=== PATIENT | male | born 1950 | race Hispanic/Latino ===

== ENCOUNTER 2019-02-03 01:15 | Emergency (ER) | payer OTHER ==
[2019-02-03] MEDS ORDERED: PANTOPRAZOLE 40 MG INJ ONE (02:08)
[2019-02-03 02:09] LABS: Absolute Lymphocytes (CBC) 1.1 K/uL (0.7-4.9); Basophils % 0.6 % (0-1.3); Hematocrit 38.1 % (39.6-49.0); Lymphocytes % 20.3 % (15.3-44.8); MPV 8.4 fL (7.6-11.3)
[2019-02-03 02:12] LABS: Protime INR 0.9
--- NOTE | 2019-02-03 02:31 | ER ---
Nurse's Notes [facility] Name: Truong Valencia Jr Age: 68 yrs Sex: Male : 1950 Arrival Date: 02/03/2019 Time: 01:16 Bed 14 Private MD: Diagnosis: Chest pain, unspecified;Type 2 diabetes mellitus;Essential (primary) hypertension Presentation: 02/03 01:30 Presenting complaint: Patient states: C/O chest pain that started this evening at 21:00, 10/10 on a pain scale. Pt had Hx of Angina in the past. Transition of care: patient was not received from another setting of care. Onset of symptoms was February 02, 2019. Risk Assessment: Do you want to hurt yourself or someone else? Patient reports no desire to harm self or others. Initial Sepsis Screen: Does the patient meet any 2 criteria? No. Patient's initial sepsis screen is negative. Does the patient have a suspected source of infection? No. Patient's initial sepsis screen is negative. Care prior to arrival: None. 01:30 Method Of Arrival: Ambulatory 01:30 Acuity: JOVANNA 3 Historical: - Allergies: 02:21 No Known Allergies; - Home Meds: 02:21 Hyzaar Oral [Active]; losartan oral oral [Active]; Metformin Oral [Active]; - PMHx: 02:21 Hypertension; Kidney stones; Angina; Diabetes - NIDDM; - Immunization history:: Adult Immunizations up to date. - Social history:: Smoking status: Patient/guardian denies using tobacco. - Ebola Screening: : Patient negative for fever greater than or equal to 101.5 degrees Fahrenheit, and additional compatible Ebola Virus Disease symptoms Patient denies exposure to infectious person. Screenin:18 Abuse screen: Denies threats or abuse. Denies injuries from another. Nutritional screening: No deficits noted. Tuberculosis screening: No symptoms or risk factors identified. Fall Risk None identified. Assessment: 02:27 General: Appears in no apparent distress. Behavior is calm, cooperative, appropriate for age. Pain: Complains of pain in chest and mid-sternal area Pain does not radiate. Pain currently is 8 out of 10 on a pain scale. Quality of pain is described as sharp, Pain began 4 hours ago. Neuro: Level of Consciousness is awake, alert, obeys commands, Oriented to person, place, time, situation, Appropriate for age. Cardiovascular: Heart tones S1 S2 Rhythm is regular. Respiratory: Airway is patent Respiratory effort is even, unlabored, Respiratory pattern is regular, symmetrical, Breath sounds are clear bilaterally. GI: Abdomen is flat, non-distended. : No signs and/or symptoms were reported regarding the genitourinary system. EENT: No signs and/or symptoms were reported regarding the EENT system. Derm: Skin is intact, is healthy with good turgor, Skin is pink, warm \T\ dry. normal. Musculoskeletal: Circulation, motion, and sensation intact. 03:09 Reassessment: Patient states feeling better. Patient states symptoms have improved. cr4 patient refused medications ordered by Dr ngo took GI cocktail. Dr Angeles was notified along with primary nurse.. Vital Signs: 01:45 BP 182 / 81; Pulse 68; Resp 18; Temp 97.8(TE); Pulse Ox 96% on R/A; oe 02:29 BP 162 / 82; Pulse 68; Resp 18; Pulse Ox 98% on R/A; 02:31 Weight 96.16 kg; Height 5 ft. 9 in. (175.26 cm); wh 03:00 BP 152 / 82; Pulse 68; Pain 4/10; cr4 02:31 Body Mass Index 31.31 (96.16 kg, 175.26 cm) ED Course: 01:16 Patient arrived in ED. ds1 01:31 Dario Angeles MD is Attending Physician. herb 01:31 Ariadne Scales is Primary Nurse. wh 01:58 Inserted saline lock: 20 gauge in right forearm, using aseptic technique. Blood oe collected. 02:10 XRAY Chest (1 view) In Process Unspecified. EDMS 02:18 Triage completed. 02:18 Arm band placed on left wrist. 02:26 Josue Darnell is Hospitalizing Provider. herb 02:29 Patient maintains SpO2 saturation greater than 95% on room air. wh 02:29 Patient has correct armband on for positive identification. Bed in low position. Call light in reach. Side rails up X 1. paper bundler on. Pulse ox on. NIBP on. 03:11 ED physician to see patient. cr4 03:17 Ruben Rowley MD is Referral Physician. herb 03:24 No provider procedures requiring assistance completed. IV discontinued, intact, bleeding controlled, No redness/swelling at site. Administered Medications: 02:16 Drug: ProTONIX 40 mg Route: IVP; Site: right wrist; 03:23 Follow up: Response: No adverse reaction 03:02 Drug: GI Cocktail without - (Maalox Suspension 30 ml, Lidocaine Liquid 2 % 15 cr4 ml) Route: PO; 03:23 Follow up: Response: No adverse reaction 03:19 Not Given (Patient Refused): Zofran 4 mg IVP once; over 2 minutes 03:20 Not Given (Patient Refused): morphine 2 mg IVP once; (PAIN>8) RASS on ADMN: Combtv4, wh Very Agttd3, Agttd2, Rstlss1, AlertClm0, Drwsy-1, LtSdtn-2, ModSdtn-3, DpSdtn-4, UnArsble-5 x2 03:22 Not Given (Patient Refused): Lopressor (metoprolol TARTRATE) 50 mg PO once 03:22 Not Given (Patient Refused): Lovenox 1 mg/kg Sub-Q once 03:23 Not Given (Patient Refused): Aspirin Chewable Tablet 162 mg PO once Outcome: 02:30 Decision to Hospitalize by Provider. [facility] 03:24 AMA AMA form signed 03:24 Condition: stable 03:24 Instructed on POC Chest PAin 03:25 Patient left the ED. Signatures: Dispatcher [employer] EDMS Dario Angeles MD MD cha Therrien, Shelly, ELASTIC YARN TWISTER-C ELASTIC YARN TWISTER-Delia Tello ds1 Amanda Solis, RN RN cr4 Kendell Alfredo Winsy
--- NOTE | 2019-02-03 02:31 | EDPHYS ---
Physician Documentation [facility] Name: Truong Valencia Jr Age: 68 yrs Sex: Male : 1950 Arrival Date: 02/03/2019 Time: 01:16 Bed 14 Private MD: ED Physician Dario Angeles HPI: 02/03 01:42 This 68 yrs old Male presents to ER via Unassigned with complaints of Chest snw Pain. 01:42 The patient or guardian reports chest pain that is located primarily in the esophageal. snw Onset: suddenly, yesterday, at 10:30, and became persistent. The pain does not radiate. Associated signs and symptoms: The patient has no apparent associated signs or symptoms. The chest pain is described as burning. Duration: The patient or guardian reports a single episode, that is still ongoing. Severity of pain: At its worst the pain was moderate. The patient has not experienced similar symptoms in the past. It is unknown whether or not the patient has recently seen a physician, Sees Dr. Lux. Historical: - Allergies: 02:21 No Known Allergies; - Home Meds: 02:21 Hyzaar Oral [Active]; losartan oral oral [Active]; Metformin Oral [Active]; - PMHx: 02:21 Hypertension; Kidney stones; Angina; Diabetes - NIDDM; - Immunization history:: Adult Immunizations up to date. - Social history:: Smoking status: Patient/guardian denies using tobacco. - Ebola Screening: : Patient negative for fever greater than or equal to 101.5 degrees Fahrenheit, and additional compatible Ebola Virus Disease symptoms Patient denies exposure to infectious person. ROS: 01:42 Constitutional: Negative for fever, chills, and weight loss, Eyes: Negative for injury, snw pain, redness, and discharge, ENT: Negative for injury, pain, and discharge, Neck: Negative for injury, pain, and swelling, Respiratory: Negative for shortness of breath, cough, wheezing, and pleuritic chest pain, Abdomen/GI: Negative for abdominal pain, nausea, vomiting, diarrhea, and constipation, Back: Negative for injury and pain, : Negative for injury, bleeding, discharge, and swelling, MS/Extremity: Negative for injury and deformity, Skin: Negative for injury, rash, and discoloration, Neuro: Negative for headache, weakness, numbness, tingling, and seizure, Psych: Negative for depression, anxiety, suicide ideation, homicidal ideation, and hallucinations. 01:42 Cardiovascular: Positive for chest pain, of the mid-sternal area. Exam: 01:44 Constitutional: This is a well developed, well nourished patient who is awake, alert, snw and in no acute distress. Head/Face: Normocephalic, atraumatic. Eyes: Pupils equal round and reactive to light, extra-ocular motions intact. Lids and lashes normal. Conjunctiva and sclera are non-icteric and not injected. Cornea within normal limits. Periorbital areas with no swelling, redness, or edema. ENT: Nares patent. No nasal discharge, no septal abnormalities noted. Tympanic membranes are normal and external auditory canals are clear. Oropharynx with no redness, swelling, or masses, exudates, or evidence of obstruction, uvula midline. Mucous membranes moist. Neck: Trachea midline, no thyromegaly or masses palpated, and no cervical lymphadenopathy. Supple, full range of motion without nuchal rigidity, or vertebral point tenderness. No Meningismus. Chest/axilla: Normal chest wall appearance and motion. Nontender with no deformity. No lesions are appreciated. Cardiovascular: Regular rate and rhythm with a normal S1 and S2. No gallops, murmurs, or rubs. Normal PMI, no JVD. No pulse deficits. Respiratory: Lungs have equal breath sounds bilaterally, clear to auscultation and percussion. No rales, rhonchi or wheezes noted. No increased work of breathing, no retractions or nasal flaring. Abdomen/GI: Soft, non-tender, with normal bowel sounds. No distension or tympany. No guarding or rebound. No evidence of tenderness throughout. Back: No spinal tenderness. No costovertebral tenderness. Full range of motion. Skin: Warm, dry with normal turgor. Normal color with no rashes, no lesions, and no evidence of cellulitis. MS/ Extremity: Pulses equal, no cyanosis. Neurovascular intact. Full, normal range of motion. Neuro: Awake and alert, GCS 15, oriented to person, place, time, and situation. Cranial nerves II-XII grossly intact. Motor strength 5/5 in all extremities. Sensory grossly intact. Cerebellar exam normal. Normal gait. Psych: Awake, alert, with orientation to person, place and time. Behavior, mood, and affect are within normal limits. Vital Signs: 01:45 BP 182 / 81; Pulse 68; Resp 18; Temp 97.8(TE); Pulse Ox 96% on R/A; oe 02:29 BP 162 / 82; Pulse 68; Resp 18; Pulse Ox 98% on R/A; wh 02:31 Weight 96.16 kg; Height 5 ft. 9 in. (175.26 cm); wh 03:00 BP 152 / 82; Pulse 68; Pain 4/10; cr4 02:31 Body Mass Index 31.31 (96.16 kg, 175.26 cm) MDM: 01:31 Patient medically screened. [facility] 02/03 01:31 Order name: Basic Metabolic Panel [facility] 02/03 01:31 Order name: CBC with Diff [facility] 02/03 01:31 Order name: LFT's [facility] 02/03 01:31 Order name: Magnesium [facility] 02/03 01:31 Order name: NT PRO-BNP [facility] 02/03 01:31 Order name: PT-INR; Complete Time: 02:19 [facility] 02/03 01:31 Order name: Troponin (emerg Dept Use Only) [facility] 02/03 01:31 Order name: XRAY Chest (1 view) [facility] 02/03 01:31 Order name: Lipase [facility] 02/03 01:32 Order name: Basic Metabolic Panel [facility] 02/03 01:32 Order name: CBC with Automated Diff; Complete Time: 02:19 [facility] 02/03 01:31 Order name: EKG; Complete Time: 01:32 [facility] 02/03 01:31 Order name: Cardiac monitoring; Complete Time: 01:58 [facility] 02/03 01:31 Order name: EKG - Nurse/Tech; Complete Time: 01:57 [facility] 02/03 01:31 Order name: IV Saline Lock; Complete Time: 01:57 [facility] 02/03 01:31 Order name: Labs collected and sent; Complete Time: 01:57 [facility] 02/03 01:31 Order name: O2 Per Protocol; Complete Time: 01:58 [facility] 02/03 01:31 Order name: O2 Sat Monitoring; Complete Time: 01:58 [facility] Administered Medications: 02:16 Drug: ProTONIX 40 mg Route: IVP; Site: right wrist; 03:23 Follow up: Response: No adverse reaction 03:02 Drug: GI Cocktail without - (Maalox Suspension 30 ml, Lidocaine Liquid 2 % 15 cr4 ml) Route: PO; 03:23 Follow up: Response: No adverse reaction 03:19 Not Given (Patient Refused): Zofran 4 mg IVP once; over 2 minutes 03:20 Not Given (Patient Refused): morphine 2 mg IVP once; (PAIN>8) RASS on ADMN: Combtv4, wh Very Agttd3, Agttd2, Rstlss1, AlertClm0, Drwsy-1, LtSdtn-2, ModSdtn-3, DpSdtn-4, UnArsble-5 x2 03:22 Not Given (Patient Refused): Lopressor (metoprolol TARTRATE) 50 mg PO once 03:22 Not Given (Patient Refused): Lovenox 1 mg/kg Sub-Q once 03:23 Not Given (Patient Refused): Aspirin Chewable Tablet 162 mg PO once wh Disposition: 02/03/19 03:18 Patient has left against medical advice. Impression: Chest pain, unspecified, Type 2 diabetes mellitus, Essential (primary) hypertension. - Patients states they are going to Home. - Condition is Stable. Follow up: Private Physician; When: 1 - 2 days; Reason: Recheck today's complaints, Continuance of care, Re-evaluation by your physician. Follow up: Ruben Rowley MD; When: Today; Reason: Recheck today's complaints, Continuance of care, Re-evaluation by your physician. - Problem is new. - Symptoms have improved. Addendum: 02/05/2019 08:24 Co-signature as Attending Physician, Dario Angeles MD I agree with the assessment and c riley plan of care. Signatures: Dispatcher [employer] Dario Clark MD MD cha Therrien, Shelly, BRAKE MACHINE OPERATOR-C BRAKE MACHINE OPERATOR-Amanda Menard, RN RN cr4 Ariadne Scales Corrections: (The following items were deleted from the chart) 02/03 03:16 02:30 Hospitalization Ordered by Josue Darnell for Observation. Preliminary diagnosis herb is Chest pain, unspecified; Essential (primary) hypertension; Type 2 diabetes mellitus. Bed requested for Telemetry/MedSurg (observation). Status is Observation. Condition is Stable. Problem is new. Symptoms have improved. UTI on Admission? No. herb 03:25 03:18 02/03/2019 03:18 Patients has left against medical advice. Impression: Chest wh pain, unspecified; Type 2 diabetes mellitus; Essential (primary) hypertension. Patient states they are going to Home. Condition is Stable. Follow up: Private Physician; When: 1 - 2 days; Reason: Recheck today's complaints, Continuance of care, Re-evaluation by your physician. Follow up: Ruben Rowley; When: Today; Reason: Recheck today's complaints, Continuance of care, Re-evaluation by your physician. Problem is new. Symptoms have improved. herb
[2019-02-03 02:34] LABS: ALT/SGPT 22 U/L (12-78); AST/SGOT 18 U/L (15-37); Albumin 3.9 g/dL (3.4-5.0); Alkaline Phosphatase 86 U/L (45-117); BUN Blood Urea Nitrogen 17 mg/dL (7-18); Bicarbonate 25 mmol/L (21-32); Bilirubin Direct 0.1 mg/dL (0-0.2); Bilirubin Total 0.3 mg/dL (0.2-1.0); Glucose Level 164 mg/dL (74-106); Lipase 259 U/L (73-393); Magnesium 2.1 mg/dL (1.8-2.4); NT PRO-BNP 23 pg/mL (<125); Potassium 3.5 mmol/L (3.5-5.1); Protein, Total 7.2 g/dL (6.4-8.2); Sodium Level 142 mmol/L (136-145); Troponin (Emerg Dept Use Only) < 0.02 ng/mL (0.0-0.045)
[2019-02-03] MEDS ORDERED: ASPIRIN 81 MG CHEWABLE TABLET ONE (02:48)
[2019-02-03] MEDS ORDERED: MORPHINE 2 MG/ML SYR ONE (02:48)
[2019-02-03] MEDS ORDERED: MAGNE/ALUM HYDROXD 30 ML UCUP ONE (02:48)
[2019-02-03] MEDS ORDERED: METOPROLOL TAR 50 MG TAB ONE (02:48)
[2019-02-03] MEDS ORDERED: ONDANSETRON 4 MG/2 ML VIAL ONE (02:48)
[2019-02-03] MEDS ORDERED: ENOXAPARIN 100 MG/ML SYR SQ ONE (02:49)
[2019-02-03] MEDS ORDERED: LIDOCAINE VISCOUS 2% SOLN 15 ML UDC ONE (02:49)
[2019-02-03 03:44] VITALS: TEMP 97.8
[2019-02-03 03:45] VITALS: O2SAT 98
[2019-02-03 03:46] VITALS: BP 152/82
--- NOTE | 2019-02-03 07:16 | EKG ---
Test Date: 2019-02-03 Test Time: 01:36:56 Conditioner Tender: HANDY MEASUREMENT RESULTS: Intervals: Rate: 69 AR: 178 QRSD: 104 QT: 398 QTc: 426 [place]: P: 62 AR: 178 QRS: -25 T: 42 INTERPRETIVE STATEMENTS: Normal sinus rhythm Normal ECG Compared to ECG 09/18/2014 06:51:25 Left-axis deviation no longer present Electronically Signed On 02-03-19 07:16:06 CDT by Ed Westbrook
--- NOTE | 2019-02-03 09:05 | RAD REPORT ---
EXAM DESCRIPTION: RAD - Chest Single View - 02/03/2019 2:10 am CLINICAL HISTORY: Chest pain COMPARISON: September 2014 TECHNIQUE: AP portable chest image was obtained 0205 hours . FINDINGS: Lung volumes are low. Interstitial markings are mildly prominent, increased fractionally f rom the comparison. This may be a difference between current AP and prior PA technique. Heart size is mildly prominent. No peripheral mass or consolidation. No measurable pleural effusion and no pneumot horax. No acute bony abnormality seen. No acute aortic findings suspected. IMPRESSION: No peripheral mass or consolidation. Heart, vasculature and lung markings are mildly prominent compared to 2014 exam. This may be due to s hallow inspiration and portable technique. However, a minimal component of failure or volume overload not excluded.
== END 2019-02-03 03:25 | disposition left against medical advice (07) ==
LOC: ER 01:15
DX: I10 Essential (primary) hypertension (principal); E11.9 Type 2 diabetes mellitus without complications
CPT/HCPCS: 93005; 85025; 80048; 36415; 83735; 85610; 80076; 84484; 83690; 83880; 71045; 96374; 99285; C9113; J1650; J2270; J2405

== ENCOUNTER 2019-07-31 03:29 | Observation (INO) | payer OTHER ==
--- OUTSIDE RECORDS SUMMARY | 2019-07-31 03:32 | XMS REPORT ---
:1950 Author Organization [employer] Care Team Providers Name Role Phone Hector Daley Provider Role Unavailable Allergies, Adverse Reactions, Alerts Substance Reaction Event Type N.K.D.A. Info Not Available Non Drug Allergy Problems Problem Type Condition Code Onset Dates Condition Statu s Problem Sexual dysfunction R37 Active Problem Other obesity due to excess E66.09 Active calories Problem Dorsalgia, unspecified M54.9 Activ e Problem Pain in joint of left shoulder M25.512 Active Problem Microalbuminuria R80.9 Active Problem Traumatic complete tear of left S46.012D Active rotator cuff, subsequent encounter Assessment Pain in joint of left shoulder M25.512 Active Problem Adhesive capsulitis of left M75.02 Active shoulder Problem Body mass index (BMI) 31.0-31.9, Z68.31 Active adult Problem Type 2 diabetes mellitus with E11.29 Active other diabetic kidney complication Problem Noncompliance with dietary Z91.11 A ctive restriction Problem Type 2 diabetes mellitus 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, without long-term current use of insulin Problem Diabetes mellitus with no E11.9 Ac tive complication Problem Herniation of lumbar M51.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 disc without myelopathy Problem Other polyp of colon K63.5 Active Problem 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 Problem Phimosis N47.1 Active Problem Calculus of kidney and ureter N20.2 Active Assessment Traumatic complete tear of left S46.012D Active rotator cuff, subsequent encounter Problem Seasonal allergic rhinitis, J30.2 Active unspecified trigger Problem Hyperlipemia, mixed E78.2 Active Assessment Adhesive capsulitis of left M75.02 Active shoulder Problem BPH without urinary obstruction N40.0 Active Problem HTN (hypertension), benign I10 A ctive Medications Medication Code Code Instructions Start End Status Dosage [place] [address]-81 30 MG Orally Active 1 tablet Once a day MetFORMIN HCl ER ND 07041123733 500 MG Orally May 01, Activ e 1 tablet BID 2019 with evening meal Hydrochlorothiazide ND 18609024138 12.5 MG Orally Feb 28, A ctive 1 tablet Once a day 2019 in the morning Acetaminophen-Codeine [facility] [address]-01 Acti ve not #3 defined Aspirin [facility] 21949753581 81 MG Orally Active 1 table t Once a day NIFEdipine ER Osmotic [facility] 59838311166 30MG Orally Ac tive 1 tablet Release Once a day Losartan Potassium [facility] 00225802038 50 MG Orally Feb 28, Acti ve 1 tablet Once a day 2019 Results No Known Results Summary Purpose [employer] Submission
--- OUTSIDE RECORDS SUMMARY | 2019-07-31 03:32 | XMS REPORT ---
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 Problem Other obesity due to excess calories E66.09 Active Problem Body mass index (BMI) 31.0-31.9, Z68.31 Active adult Problem Type 2 diabetes mellitus with other E11.29 Active diabetic kidney complication Problem Seasonal allergic rhinitis, J30.2 Active unspecified trigger Problem Herniation of lumbar intervertebral M51.26 Active disc without myelopathy Problem Type 2 diabetes mellitus 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, without long-term current use of insulin Problem BPH without urinary obstruction N40.0 Active Problem Microalbuminuria R80.9 Active Assessment HTN (hypertension), benign I10 A ctive Problem Hyperlipemia, mixed E78.2 Active Problem HTN (hypertension), benign I10 A ctive Problem Phimosis N47.1 Active Problem Sexual dysfunction R37 Active Problem Dorsalgia, unspecified M54.9 Activ e Problem Calculus of kidney and ureter N20.2 Active Medications Medication Code Code Instructions Start End Status Dosage System Date Date Rosemarie [facility] 80345199182 50-12.5 MG Inactive 1 tablet Orally Once a day Hydrochlorothiazide [facility] 22843279320 12.5 MG Orally Feb 28, A ctive 1 tablet Once a day 2019 in the morning Losartan Potassium [facility] 99191402855 50 MG Orally Feb 28, Acti ve 1 tablet Once a day 2018 Results No Known Results Summary Purpose [employer] Submission
--- OUTSIDE RECORDS SUMMARY | 2019-07-31 03:32 | XMS REPORT ---
[...] obesity due to excess E66.09 Active calories Assessment Traumatic complete tear of left S46.012A Active rotator cuff, initial encounter Problem Body mass index (BMI) 31.0-31.9, Z68.31 Active adult Problem Type 2 diabetes mellitus with E11.29 Active other diabetic kidney complication Problem Seasonal allergic rhinitis, J30.2 Active unspecified trigger Problem Herniation of lumbar M51.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 disc without myelopathy Problem Type 2 diabetes mellitus 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, without long-term current use of insulin Problem BPH without urinary obstruction N40.0 Active Problem Microalbuminuria R80.9 Active Assessment Adhesive capsulitis of left M75.02 Active shoulder Assessment Pain in joint of left shoulder M25.512 Active Problem Hyperlipemia, mixed E78.2 Active Problem HTN (hypertension), benign I10 A ctive Problem Phimosis N47.1 Active Problem Sexual dysfunction R37 Active Problem Dorsalgia, unspecified M54.9 Activ e Problem Calculus of kidney and ureter N20.2 Active Medications Medication Code Code Instructions Start End Status Dosage System Date Date Procardia XL [facility] [address]-57 30 MG Orally Active 1 tablet Once a day Hyzaar [facility] 16642886816 50-12.5 MG Active 1 tablet Orally Once a day Aspirin [facility] 24597008531 81 MG Orally Active 1 table t Once a day Metformin HCl [facility] 72653317894 500 MG Orally Active 1 tablet Twice a day with meals Acetaminophen- [facility] [address]-60 Active not Codeine #3 defined Results No Known Results Summary Purpose [employer]ClinicalWorks Submission
--- OUTSIDE RECORDS SUMMARY | 2019-07-31 03:32 | XMS REPORT ---
:1950 Author Organization eClinicalWorks Care Team Providers Name Role Phone Hector Daley Provider Role Unavailable Allergies, Adverse Reactions, Alerts Substance Reaction Event Type N.K.D.A. Info Not Available Non Drug Allergy Problems Problem Type Condition Code Onset Dates Condition Statu s Problem HTN (hypertension), benign I10 A ctive Problem Dorsalgia, unspecified M54.9 Activ e Problem Sexual dysfunction R37 Active Problem Pain in joint of left shoulder M25.512 Active Problem Traumatic complete tear of left S46.012D Active rotator cuff, subsequent encounter Assessment Pain in joint of left shoulder M25.512 Active Assessment Adhesive capsulitis of left M75.02 Active shoulder Problem Adhesive capsulitis of left M75.02 Active shoulder Problem Type 2 diabetes mellitus with E11.29 Active other diabetic kidney complication Problem Other obesity due to excess E66.09 Active calories Problem Type 2 diabetes mellitus 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, without long-term current use of insulin Problem Body mass index (BMI) 31.0-31.9, Z68.31 Active adult Problem 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 Problem Diabetes mellitus with no E11.9 Ac tive complication Problem Microalbuminuria R80.9 Active Problem Other polyp of colon K63.5 Active Problem BPH without urinary obstruction N40.0 Active Problem Phimosis N47.1 Active Problem Herniation of lumbar M51.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 disc without myelopathy Problem Calculus of kidney and ureter N20.2 Active Assessment Traumatic complete tear of left S46.012D Active rotator cuff, subsequent encounter Problem Seasonal allergic rhinitis, J30.2 Active unspecified trigger Problem Hyperlipemia, mixed E78.2 Active Medications Medication Code Code Instructions Start End Status Dosage System Date Date Hydrochlorothiazide [facility] 18835411570 12.5 MG Orally Feb 28, A ctive 1 tablet Once a day 2019 in the morning Acetaminophen-Codeine [facility] [address]-15 Acti ve not #3 defined Aspirin [facility] 91702734242 81 MG Orally Active 1 table t Once a day NIFEdipine ER Osmotic [facility] 95384822783 30MG Orally Ac tive 1 tablet Release Once a day Losartan Potassium [facility] 22088511139 50 MG Orally Feb 28, Acti ve 1 tablet Once a day 2018 Hyzaar [facility] [address]-14 Active not defined Procardia XL [facility] [address]-26 30 MG Orally Active 1 tablet Once a day Metformin HCl [facility] 01787612948 500 MG Orally Active 1 tablet Twice a day with meals Results No Known Results Summary Purpose eClinicalWorks Submission
--- OUTSIDE RECORDS SUMMARY | 2019-07-31 03:32 | XMS REPORT ---
:1950 Author Organization eClinicalWorks Care Team Providers Name Role Phone Silvestre Lux Provider Role Unavailable Allergies, Adverse Reactions, Alerts Substance Reaction Event Type N.K.D.A. Info Not Available Non Drug Allergy Problems Problem Type Condition Code Onset Dates Condition Statu s Assessment Noncompliance with dietary Z91.11 A ctive restriction Assessment Statin declined Z53.20 Active Assessment Body mass index (BMI) 31.0-31.9, Z68.31 Active adult Assessment Other obesity due to excess E66.09 Active calories Assessment History of fall within past 90 Z91.81 Active days Assessment Hyperlipemia, mixed E78.2 Active Assessment Left shoulder pain, unspecified M25.512 Active chronicity Problem Hyperlipemia, mixed E78.2 Active Assessment HTN (hypertension), benign I10 A ctive Problem HTN (hypertension), benign I10 A ctive Assessment Proteinuria, unspecified type R80.9 Active Problem Sexual dysfunction R37 Active Problem Other obesity due to excess E66.09 Active calories Problem Dorsalgia, unspecified M54.9 Activ e Problem Pain in joint of left shoulder M25.512 Active Problem Traumatic complete tear of left S46.012D Active rotator cuff, subsequent encounter Problem Microalbuminuria R80.9 Active Problem Adhesive capsulitis of left M75.02 Active shoulder Assessment Type 2 diabetes mellitus with E11.21 Active [...] Calculus of kidney and ureter N20.2 Active Problem Seasonal allergic rhinitis, J30.2 Active unspecified trigger Problem BPH without urinary obstruction N40.0 Active Medications Medication Code Code Instructions Start End Status Dosage System Date Date Acetaminophen-Codeine [facility] [address]-92 Acti ve not #3 defined Aspirin [facility] 69095003584 81 MG Orally Active 1 table t Once a day Hydrochlorothiazide [facility] 79762990128 12.5 MG Orally Feb 28, A ctive 1 tablet Once a day 2019 in the morning Procardia XL [facility] [address]-38 30 MG Orally Active 1 tablet Once a day NIFEdipine ER Osmotic [facility] 20079449432 30MG Orally Ac tive 1 tablet Release Once a day MetFORMIN HCl ER [facility] 53335955352 500 MG Orally May 01, Activ e 1 tablet BID 2019 with evening meal Metformin HCl [facility] 32606874647 500 MG Orally Inactive 1 tablet Twice a day with meals Losartan Potassium ND 20284070578 50 MG Orally Feb 28, Acti ve 1 tablet Once a day 2019 Hyzaar [facility] 21665142463 50-12.5 MG Inactive 1 tablet Orally Once a day Results No Known Results Summary Purpose eClinicalWorks Submission
--- OUTSIDE RECORDS SUMMARY | 2019-07-31 03:32 | XMS REPORT ---
:1950 Author Organization eClinicalWorks Care Team Providers Name Role Phone Jose JSilvestre Provider Role Unavailable Allergies No Known Allergies Problems Problem Type Condition Code Onset Dates Condition Statu s Problem HTN (hypertension), benign I10 A ctive Problem Dorsalgia, unspecified M54.9 Activ e Problem Sexual dysfunction R37 Active Problem Pain in joint of left shoulder M25.512 Active Problem Traumatic complete tear of left S46.012D Active rotator cuff, subsequent encounter Assessment HTN (hypertension), benign I10 A ctive Assessment Hyperlipemia, mixed E78.2 Active Problem Adhesive capsulitis of left M75.02 [...] obstruction N40.0 Active Problem Phimosis N47.1 Active Assessment Microalbuminuria R80.9 Active Problem Herniation of lumbar M51.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 disc without myelopathy Problem Calculus of kidney and ureter N20.2 Active Assessment Type 2 diabetes mellitus 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, without long-term current use of insulin Problem Seasonal allergic rhinitis, J30.2 Active unspecified trigger Problem Hyperlipemia, mixed E78.2 Active Medications No Known Medications Results No Known Results Summary Purpose eClinicalWorks Submission
[2019-07-31] MEDS ORDERED: LIDOCAINE VISCOUS 2% SOLN 15 ML UDC ONE ×2 (03:50→05:28)
[2019-07-31] MEDS ORDERED: MAGNE/ALUM HYDROXD 30 ML UCUP ONE ×2 (03:50→05:27)
[2019-07-31] MEDS ORDERED: NITROGLYCERIN 0.4 MG/TAB SL ONE (03:50)
[2019-07-31 04:04] LABS: Absolute Lymphocytes (CBC) 1.4 K/uL (0.7-4.9); Basophils % 0.5 % (0-1.3); Hematocrit 37.3 % (39.6-49.0); Lymphocytes % 13.5 % (15.3-44.8); MPV 8.8 fL (7.6-11.3); RBC Red Blood Cell Count 4.59 M/uL (4.33-5.43)
[2019-07-31] MEDS ORDERED: FENTANYL CITR 100 MCG/2 ML ONE ×2 (04:20→11:00)
[2019-07-31 04:27] LABS: ALT/SGPT 22 U/L (12-78); AST/SGOT 24 U/L (15-37); Albumin 4.1 g/dL (3.4-5.0); Alkaline Phosphatase 88 U/L (45-117); BUN Blood Urea Nitrogen 18 mg/dL (7-18); Bicarbonate 24 mmol/L (21-32); Bilirubin Direct 0.1 mg/dL (0-0.2); Bilirubin Total 0.4 mg/dL (0.2-1.0); Glucose Level 196 mg/dL (74-106); Lipase 168 U/L (73-393); NT PRO-BNP 18 pg/mL (<125); Potassium 3.2 mmol/L (3.5-5.1); Sodium Level 141 mmol/L (136-145); Troponin (Emerg Dept Use Only) < 0.02 ng/mL (0.0-0.045)
--- NOTE | 2019-07-31 04:52 | ER ---
Nurse's Notes [facility] Name: Truong Valencia Jr Age: 69 yrs Sex: Male : 1950 Arrival Date: 07/31/2019 Time: 03:31 Bed 16 Private MD: Diagnosis: Chest pain, unspecified Presentation: 07/30 03:42 Chief complaint: Patient states: he started having chest pain at approx 2130 last night bb feels like something is sitting on his chest has nausea and broke out in a sweat on the way here denies fever, cough, SOB. Coronavirus screen: Proceed with normal triage. Ebola Screen: No symptoms or risks identified at this time. Initial Sepsis Screen: Does the patient meet any 2 criteria? No. Patient's initial sepsis screen is negative. Does the patient have a suspected source of infection? No. Patient's initial sepsis screen is negative. Risk Assessment: Do you want to hurt yourself or someone else? Patient reports no desire to harm self or others. Onset of symptoms was July 30, 2019. 03:42 Method Of Arrival: Ambulatory bb 03:42 Acuity: JOVANNA 2 bb Historical: - Allergies: 03:45 No Known Allergies; bb - Home Meds: 03:45 Metformin Oral [Active]; losartan Oral [Active]; Nifedipine Oral [Active]; bb - PMHx: 03:45 Angina; Diabetes - NIDDM; Hypertension; Kidney stones; bb - PSHx: 03:45 heart cath; bb - Immunization history:: Adult Immunizations up to date. - Social history:: Smoking status: Patient denies any tobacco usage or history of. - Family history:: not pertinent. - Hospitalizations: : No recent hospitalization is reported. Screenin:56 Abuse screen: Denies threats or abuse. Denies injuries from another. Nutritional mg2 screening: No deficits noted. Tuberculosis screening: No symptoms or risk factors identified. Fall Risk IV access (20 points). Assessment: 03:52 General: Appears in no apparent distress. comfortable, Behavior is calm, cooperative. mg2 Pain: Complains of pain in chest. Neuro: Level of Consciousness is awake, alert, obeys commands, Oriented to person, place, time, situation. Cardiovascular: Reports chest pain. Respiratory: Airway is patent Respiratory effort is even, unlabored, Respiratory pattern is regular, symmetrical. GI: No signs and/or symptoms were reported involving the gastrointestinal system. : No signs and/or symptoms were reported regarding the genitourinary system. EENT: No signs and/or symptoms were reported regarding the EENT system. Derm: Skin is intact, is healthy with good turgor, Skin is pink, warm \T\ dry. normal. Musculoskeletal: Circulation, motion, and sensation intact. Capillary refill < 3 seconds. 03:52 Pain: Pain began gradually. mg2 03:52 Pain: Pain does not radiate. mg2 05:28 Reassessment: Patient appears in no apparent distress at this time. Patient and/or mg2 family updated on plan of care and expected duration. Pain level reassessed. Patient is alert, oriented x 3, equal unlabored respirations, skin warm/dry/pink. seen by hospitalist Dr Krishnamurthy. Vital Signs: 03:42 BP 137 / 60; Pulse 54; Resp 16 S; Temp 97.7(O); Pulse Ox 96% on R/A; Weight 95.25 kg bb (R); Height 5 ft. 9 in. (175.26 cm) (R); Pain 10/10; 04:08 BP 118 / 59; Pulse 53; Resp 18; Pulse Ox 97% on 3 lpm NC; mg2 04:49 BP 135 / 61; Pulse 51; Resp 18; Pulse Ox 97% on 3 lpm NC; mg2 06:00 BP 142 / 63; Pulse 60; Resp 18; Temp 97.8(O); Pulse Ox 98% on 3 lpm NC; mg2 03:42 Body Mass Index 31.01 (95.25 kg, 175.26 cm) bb ED Course: 03:31 Patient arrived in ED. ag3 03:32 Manny Whitfield MD is Attending Physician. rn 03:43 Inserted saline lock: 20 gauge in left forearm, using aseptic technique. Blood ao collected. 03:43 EKG done, by emergency medical tech. reviewed by Manny Whitfield MD. ao 03:44 Triage completed. bb 03:45 Arm band placed on Patient placed in an exam room, on a stretcher, on monitoring and evaluation advisor, bb on pulse oximetry. EKG completed in triage. Results shown to MD. 03:46 Anthony Oro, RN is Primary Nurse. mg2 03:57 Patient has correct armband on for positive identification. Placed in gown. Bed in low mg2 position. Call light in reach. Side rails up X 1. monitoring and evaluation advisor on. Pulse ox on. NIBP on. 04:01 Troponin (emerg Dept Use Only) Sent. ds4 04:01 Basic Metabolic Panel Sent. ds4 04:01 NT PRO-BNP Sent. ds4 04:01 LFT's Sent. ds4 04:01 CBC with Diff Sent. ds4 04:02 Lipase Sent. ds4 04:03 No provider procedures requiring assistance completed. Patient maintains SpO2 mg2 saturation greater than 95% on room air. 04:17 XRAY Chest (1 view) In Process Unspecified. EDMS 04:51 Reji Krishnamurthy MD is Hospitalizing Provider. rn 06:20 Patient admitted, IV remains in place. mg2 Administered Medications: 03:48 Drug: GI Cocktail without - (Maalox Suspension 30 ml, Lidocaine Liquid 2 % 15 mg2 ml) Route: PO; 04:17 Follow up: Response: No adverse reaction mg2 03:49 Drug: Nitroglycerin 0.4 mg Route: Sublingual; mg2 04:12 Follow up: Response: No adverse reaction; Pain is unchanged, physician notified mg2 04:16 Drug: fentaNYL (PF) 25 mcg Route: IVP; Site: left forearm; mg2 05:26 Follow up: Response: No adverse reaction; RASS: Alert and Calm (0) mg2 05:28 Drug: GI Cocktail without - (Maalox Suspension 30 ml, Lidocaine Liquid 2 % 15 mg2 ml) Route: PO; 06:22 Follow up: Response: No adverse reaction mg2 05:58 Drug: morphine 2 mg Route: IVP; Site: left forearm; mg2 06:20 Follow up: Response: No adverse reaction mg2 05:58 Drug: Zofran (Ondansetron) 4 mg Route: IVP; Site: left forearm; mg2 06:19 Follow up: Response: No adverse reaction mg2 06:04 CANCELLED (Physician Discretion): Zofran (Ondansetron) 4 mg IVP once; over 2 minutes mg2 Outcome: 04:51 Decision to Hospitalize by Provider. rn 06:21 Admitted to Med/surg accompanied by tech, via wheelchair, room 216, with chart, Report mg2 called to OG Pringel 06:21 Condition: stable 06:21 Instructed on the need for admit, Demonstrated understanding of instructions. 06:27 Patient left the ED. mg2 Signatures: Dispatcher [employer] EDJoana Junior RN RN Manny Arias MD MD rn Swanson, Donovan ds4 Eagle Mae RN Anthony Benjamin RN RN mg2 Clarissa Lincoln ag3 Corrections: (The following items were deleted from the chart) 04:40 03:57 Pain: mg2 mg2 04:48 04:08 BP 118 / 59; Pulse 53bpm; Resp 18bpm; Pulse Ox 97% RA; mg2 mg2
--- NOTE | 2019-07-31 04:52 | EDPHYS ---
Physician Documentation [facility] Name: Truong Valencia Jr Age: 69 yrs Sex: Male : 1950 Arrival Date: 07/31/2019 Time: 03:31 Bed 16 Private MD: ED Physician Manny Whitfield HPI: 07/30 03:43 This 69 yrs old Male presents to ER via Unassigned with complaints of Chest rn Pain. 03:43 The patient or guardian reports chest pain that is located primarily in the substernal rn area. Onset: last night. The pain does not radiate. Associated signs and symptoms: Pertinent positives: diaphoresis, Pertinent negatives: abdominal pain, headache, shortness of breath, syncope, vomiting. The chest pain is described as a heaviness, a pressure. Duration: The patient or guardian reports a single episode. Modifying factors: The symptoms are alleviated by nothing. the symptoms are aggravated by nothing. Severity of pain: At its worst the pain was moderate in the emergency department the pain is unchanged. The patient has experienced a previous episode. Reports chest pain, substernal, began 6 hours ago, assoc with diaphoresis and nausea, no fever/cough/sob/abd pain. Reports hx of angina but no RI or stent. . Historical: - Allergies: 03:45 No Known Allergies; bb - Home Meds: 03:45 Metformin Oral [Active]; losartan Oral [Active]; Nifedipine Oral [Active]; bb - PMHx: 03:45 Angina; Diabetes - NIDDM; Hypertension; Kidney stones; bb - PSHx: 03:45 heart cath; bb - Immunization history:: Adult Immunizations up to date. - Social history:: Smoking status: Patient denies any tobacco usage or history of. - Family history:: not pertinent. - Hospitalizations: : No recent hospitalization is reported. ROS: 03:43 Constitutional: Negative for fever, chills, and weight loss, Eyes: Negative for injury, rn pain, redness, and discharge, Neck: Negative for injury, pain, and swelling, Cardiovascular: Negative for palpitations, and edema, Respiratory: Negative for shortness of breath, cough, wheezing, and pleuritic chest pain, Abdomen/GI: Negative for abdominal pain, vomiting, diarrhea, and constipation, MS/Extremity: Negative for injury and deformity, Skin: Negative for injury, rash, and discoloration, Neuro: Negative for headache, weakness, numbness, tingling, and seizure. Exam: 03:43 Constitutional: This is a well developed, well nourished patient who is awake, alert, rn eyes closed and barely opens them during exam to speak Head/Face: Normocephalic, atraumatic. ENT: MMM Cardiovascular: Regular rhythm. Bradycardic. No pulse deficits. Respiratory: Speaking full sentences, clear breath sounds bilaterally. No increased work of breathing, no retractions or nasal flaring. Abdomen/GI: soft, non-tender MS/ Extremity: Pulses equal, no cyanosis. Neurovascular intact. Full, normal range of motion. Equal circumference. Neuro: Awake and alert, GCS 15, oriented to person, place, time, and situation. Motor strength 5/5 in all extremities. Sensory grossly intact. Vital Signs: 03:42 BP 137 / 60; Pulse 54; Resp 16 S; Temp 97.7(O); Pulse Ox 96% on R/A; Weight 95.25 kg bb (R); Height 5 ft. 9 in. (175.26 cm) (R); Pain 10/10; 04:08 BP 118 / 59; Pulse 53; Resp 18; Pulse Ox 97% on 3 lpm NC; mg2 04:49 BP 135 / 61; Pulse 51; Resp 18; Pulse Ox 97% on 3 lpm NC; mg2 06:00 BP 142 / 63; Pulse 60; Resp 18; Temp 97.8(O); Pulse Ox 98% on 3 lpm NC; mg2 03:42 Body Mass Index 31.01 (95.25 kg, 175.26 cm) bb MDM: 03:32 Patient medically screened. rn 04:50 Differential diagnosis: abnormal EKG, acute myocardial infarction, acute pericarditis, rn coronary artery disease chest wall pain, costochondritis, esophagitis, gastritis, gastroesophageal reflux disease (GERD), pleurisy, pneumothorax, stable angina, unstable angina. Data reviewed: vital signs, nurses notes, lab test result(s), EKG, radiologic studies, plain films, and as a result, I will admit patient. Test interpretation: by ED physician or midlevel provider: ECG, plain radiologic studies, CXR neg for acute infiltrate. Counseling: I had a detailed discussion with the patient and/or guardian regarding: the historical points, exam findings, and any diagnostic results supporting the discharge/admit diagnosis, lab results, radiology results, the need for further work-up and treatment in the hospital. Admission orders: after a detailed discussion of the patient's condition and case, the admit orders are written by me. ED course: Admitted to Dr. Krishnamurthy for chest pain, hx of angina/DM/HTN/HLD and ongoing chest pain. Bradycardic and PVCs could be signs of heart irritability, no STEMI on ECG and neg trop. . 07/30 03:41 Order name: Basic Metabolic Panel; Complete Time: 04:28 rn 07/30 03:41 Order name: CBC with Diff; Complete Time: 04:28 rn 07/30 03:41 Order name: LFT's; Complete Time: 04:28 rn 07/30 03:41 Order name: NT PRO-BNP; Complete Time: 04:28 rn 07/30 03:41 Order name: Troponin (emerg Dept Use Only); Complete Time: 04:28 rn 07/30 03:41 Order name: Lipase; Complete Time: 04:28 rn 07/30 03:52 Order name: Glucose, Ancillary Testing; Complete Time: 04:00 EDMS 07/30 05:45 Order name: CBC with Automated Diff EDMN 07/30 05:45 Order name: CBC with Automated Diff EDMN 07/30 05:45 Order name: Comprehensive Metabolic Panel EDMN 07/30 05:45 Order name: Comprehensive Metabolic Panel EDMN 07/30 05:46 Order name: Lipid Profile EDMN 07/30 05:46 Order name: Lipid Profile EDMN 07/30 05:46 Order name: Troponin I EDMN 07/30 03:41 Order name: XRAY Chest (1 view) rn 07/30 03:41 Order name: EKG; Complete Time: 03:42 rn 07/30 03:41 Order name: Cardiac monitoring; Complete Time: 03:49 rn 07/30 03:41 Order name: O2 Sat Monitoring; Complete Time: 03:49 rn 07/30 05:45 Order name: CONS Pharmacy Consult EDMS 07/30 05:45 Order name: CONS Physician Consult EDMS 07/30 05:45 Order name: Consistent Carb (ADA) 1800 Jai EDMS 07/30 05:46 Order name: Troponin I EDMS 07/30 05:46 Order name: Troponin I [facility] 07/30 03:41 Order name: EKG - Nurse/Tech; Complete Time: 03:49 rn 07/30 03:41 Order name: IV Saline Lock; Complete Time: 03:43 rn 07/30 03:41 Order name: Labs collected and sent; Complete Time: 03:49 rn 07/30 03:41 Order name: O2 Per Protocol; Complete Time: 03:49 rn Administered Medications: 03:48 Drug: GI Cocktail without - (Maalox Suspension 30 ml, Lidocaine Liquid 2 % 15 mg2 ml) Route: PO; 04:17 Follow up: Response: No adverse reaction mg2 03:49 Drug: Nitroglycerin 0.4 mg Route: Sublingual; mg2 04:12 Follow up: Response: No adverse reaction; Pain is unchanged, physician notified mg2 04:16 Drug: fentaNYL (PF) 25 mcg Route: IVP; Site: left forearm; mg2 05:26 Follow up: Response: No adverse reaction; RASS: Alert and Calm (0) mg2 05:28 Drug: GI Cocktail without - (Maalox Suspension 30 ml, Lidocaine Liquid 2 % 15 mg2 ml) Route: PO; 06:22 Follow up: Response: No adverse reaction mg2 05:58 Drug: morphine 2 mg Route: IVP; Site: left forearm; mg2 06:20 Follow up: Response: No adverse reaction mg2 05:58 Drug: Zofran (Ondansetron) 4 mg Route: IVP; Site: left forearm; mg2 06:19 Follow up: Response: No adverse reaction mg2 06:04 CANCELLED (Physician Discretion): Zofran (Ondansetron) 4 mg IVP once; over 2 minutes mg2 Disposition: 07/31/19 04:51 Hospitalization ordered by Reji Krishnamurthy for Observation. Preliminary diagnosis is Chest pain, unspecified. - Bed requested for Telemetry/MedSurg (observation). - Status is Observation. mg2 - Condition is Stable. - Problem is new. - Symptoms are unchanged. Signatures: Dispatcher [employer] EDMN Jess Diaz RN RN mw Ballard, Brenda, RN RN bb Nieto, Roman, MD MD rn Gardose, Michele, RN RN mg2 Corrections: (The following items were deleted from the chart) 05:52 04:51 Hospitalization Ordered by Reji Krishnamurthy MD for Observation. Preliminary mw diagnosis is Chest pain, unspecified. Bed requested for Telemetry/MedSurg (observation). Status is Observation. Condition is Stable. Problem is new. Symptoms are unchanged. rn 06:04 06:04 Zofran (Ondansetron) 4 mg IVP once; over 2 minutes ordered. mg2 mg2 06:27 05:52 07/31/2019 04:51 Hospitalization Ordered by Reji Krishnamurthy MD for Observation. mg2 Preliminary diagnosis is Chest pain, unspecified. Bed requested for Telemetry/MedSurg (observation). Status is Observation. Condition is Stable. Problem is new. Symptoms are unchanged. mw
[2019-07-31] MEDS ORDERED: ONDANSETRON 4 MG/2 ML VIAL IV PRN (05:40)
[2019-07-31] MEDS ORDERED: ALBUTEROL 2.5 MG/3 ML NEB SOL NEB PRN ×2 (05:40→16:00)
[2019-07-31] MEDS ORDERED: MORPHINE 2 MG/ML SYR IV PRN (05:40)
--- NOTE | 2019-07-31 05:40 | P.HP ---
Certification for Inpatient Patient admitted to: Observation With expected LOS: >2 Midnights Patient will require the following post-hospital care: Home Health Services Practitioner: I am a practitioner with admitting privileges, knowledge of patient current condition, hospital course, and medical plan of care. Services: Services provided to patient in accordance with Admission requirements found in Title 42 Section 412.3 of the Code of Federal Regulations Patient History Date of Service: 07/31/19 Reason for admission: chest pain History of Present Illness: 69-year-old male with past medical history of hypertension, diabetes mellitus, presented because of sudden onset chest pain which started at about 9:00 p.m. while patient was lying down and preparing to sleep. Pain is more in the lower substernal area and nonradiating more flat pressure-like. Patient states pain is related to a previous episode of pain with the presented to the ED a was given a GI cocktail which relieved the symptoms. He was given a GI cocktail on arrival today with no change in his patient pain symptoms. He still described pain at as 8/10. There is no for family history of coronary artery disease. Patient has never had a stress test or a cardiac catheterization in the past. He denies any history of tobacco use. He denies a prior history of recurrent GERD. Allergies No Known Allergies Allergy (Verified 09/17/14 18:27) Home medications list reviewed: No Home Medications: Losartan/Hydrochlorothiazide [Hyzaar 50-12.5 Tablet] 1 tab PO DAILY 09/17/14 Metformin HCl [Glucophage] 1,000 mg PO BID 09/17/14 Nifedipine Xl [Procardia Xl*] 30 mg PO DAILY 09/17/14 Ciprofloxacin HCl [Cipro 250 MG Tablet*] 250 mg PO BID #20 tab 09/19/14 Tamsulosin [Flomax*] 0.4 mg PO DAILY #30 cap 09/19/14 metroNIDAZOLE [Flagyl] 500 mg PO Q8H #30 tablet 09/19/14 - Past Medical/Surgical History Has patient received pneumonia vaccine in the past: No Diabetic: Yes -: kidney stones -: lumbar disc herniation -: HTN -: DM -: BPH -: hyperlipidemia -: laser sx kidney stones -: lumbar disc repair -: prostate sx - Family History Father -: Cancer, Other (see notes) Notes: throat ca, Mother -: Diabetes - Social History Smoking Status: Never smoker Smoking therapy provided: No Alcohol use: Yes Caffeine use: Yes Review of Systems 10-point ROS is otherwise unremarkable Physical Examination - Vital Signs Blood Pressure: 142/63 Pulse: 55 Respirations: 14 Pulse Ox (%): 96 - Physical Exam General: Alert, Oriented x3, Cooperative, Mild distress (Pain) HEENT: Atraumatic, Normocephalic, PERRLA Neck: Supple, 2+ carotid pulse no bruit Respiratory: Clear to auscultation bilaterally, Normal air movement Cardiovascular: No edema, Normal pulses, Normal S1 S2 Gastrointestinal: Normal bowel sounds, Soft and benign, Non-distended, Tenderness (Minimal epigastric area tenderness) Musculoskeletal: No clubbing, No swelling Integumentary: No rashes, No breakdown Neurological: Normal gait, Normal speech, Normal strength at 5/5 x4 extr - Studies Laboratory Data (last 24 hrs) 07/31/19 03:45: WBC 10.7, Hgb 12.3 L, Hct 37.3 L, Plt Count 303 07/31/19 03:45: Sodium 141, Potassium 3.2 L, BUN 18, Creatinine 1.01, Glucose 196 H, Total Bilirubin 0.4, AST 24, ALT 22, Alkaline Phosphatase 88, Lipase 168 Imagings Data: Chest x-ray reviewed-no acute infiltrate EKG shows sinus bradycardia at 54 beats per min , occasional PVCs, no ST segment changes Assessment and Plan - Problems (Diagnosis) (1) Chest pain Current Visit: Yes Status: Acute (2) Chest pain Current Visit: Yes Status: Acute (3) Diabetes mellitus Current Visit: Yes Status: Acute (4) Hypertension Current Visit: Yes Status: Acute - Advance Directives Does patient have a Living Will: No Does patient have a Durable POA for Healthcare: No Physician Review: Patient Assessed, Agree with Above Assessment and Plan Physician Review Additional Text: # substernal chest pain-atypical for acute coronary syndrome. -will obtain serial set of cardiac enzymes. -we repeat GI cocktail now as well as start patient on Pepcid b.i.d. - If no relief of pain with GI cocktail , will do nitro patch with morphine p.r.n. -patient might benefit from stress test if negative sets of cardiac enzymes -will consult Cardiology -will obtain lipid panel Hypertension-controlled continue patient home regimen Diabetes mellitus - resume oral hypoglycemic, Accu-Cheks with insulin sliding scale DVT prophylaxis-subcutaneous Lovenox Advanced directives patient is full code Time Spent Managing Pts Care (In Minutes): 65
[2019-07-31] MEDS ORDERED: POTASSIUM 25 MEQ EFFERV TAB PO ONE (05:42)
[2019-07-31] MEDS ORDERED: HYDRALAZINE HCL 20 MG/ML VIAL IV PRN (05:42)
[2019-07-31] MEDS ORDERED: MORPHINE 2 MG/ML SYR ONE (05:59)
[2019-07-31] MEDS ORDERED: ONDANSETRON 4 MG/2 ML VIAL ONE (05:59)
[2019-07-31 06:37] VITALS: BMI 31.1
[2019-07-31] MEDS: INSULIN -REGULAR HUMAN 50 UNIT/0.5 ML ML SQ SCH ×4 (07:30→20:48)
[2019-07-31] MEDS: ENOXAPARIN 40 MG/0.4 ML SQ SCH (07:55)
[2019-07-31] MEDS: FAMOTIDINE 20 MG/2 ML VIAL IV SCH ×2 (08:07→20:57)
--- NOTE | 2019-07-31 08:12 | RAD REPORT ---
EXAM DESCRIPTION: RAD - Chest Single View - 07/31/2019 4:17 am CLINICAL HISTORY: CHEST PAIN Chest pain. COMPARISON: Chest Single View dated 02/03/2019; CHEST PA AND LAT 2 VIEW dated 09/17/2014; CHEST PA AND LAT 2 VIEW dated 08/20/2011; CHEST PA AND LAT 2 VIEW dated 02/16/2010 FINDINGS: Portable technique limits examination quality. The lungs are grossly clear. The heart is upper limit of normal in size. No displaced fractures. IMPRESSION: No acute intrathoracic process suspected.
[2019-07-31] MEDS: NITROGLYCERIN 0.2 MG/HR (5 MG) PATCH TD SCH (09:00)
[2019-07-31] MEDS ORDERED: NA CHLORIDE 0.9% 500 ML ONE (10:33)
[2019-07-31] MEDS ORDERED: HEPA 1000U/500MLS 1,000 UNIT/500 ML BAG IV ONE (10:59)
[2019-07-31] MEDS ORDERED: MIDAZOLAM HCL 2 MG/2 ML INJ ONE (11:00)
[2019-07-31] MEDS ORDERED: NA CHLORIDE 0.9% 0 ML ONE (11:00)
[2019-07-31] MEDS ORDERED: ATROPINE SULF 1 MG/10 ML SYR IV ONE (11:00)
[2019-07-31] MEDS ORDERED: cloNIDine HCL 0.1 MG TAB ONE (11:23)
--- NOTE | 2019-07-31 11:31 | EKG ---
Test Date: 2019-07-31 Test Time: 03:35:34 Leasing Associate: MEASUREMENT RESULTS: Intervals: Rate: 54 WA: 186 QRSD: 108 QT: 460 QTc: 436 [place]: P: 42 WA: 186 QRS: -21 T: 18 INTERPRETIVE STATEMENTS: Sinus bradycardia with occasional premature ventricular complexes Otherwise normal ECG Compared to ECG 02/03/2019 01:36:56 Ventricular premature complex(es) now present Sinus rhythm no longer present Electronically Signed On 07-31-19 11:29:42 CDT by Ruben Rowley
--- NOTE | 2019-07-31 13:39 | CON ---
Date of Consultation: 07/31/2019 Reason For Consultation: Unstable angina. History Of Present Illness: Mr. Valencia is a 69-year-old male, has a history of diabetes, hypertensio n, and nephrolithiasis. Never had any cardiac history in the past. Comes in with substernal chest p ressure radiating to both shoulder that has been going on for about 3 days with some nausea, but no v omiting. Has had some diaphoresis. Denied PND, orthopnea, pedal edema, palpitations, or syncope. D enied any fever or chills. His pain has improved but continued despite medical therapy. His troponi n was negative. His potassium was 3.2, glucose was 196. EKG showed nonspecific changes. Chest x-ra y was normal. Past Medical History: Negative otherwise. Allergies: NONE. Review of Systems: Negative. Social History: Negative. Family History: Positive for coronary artery disease and diabetes. Medications At Home: Include lisinopril with hydrochlorothiazide, metformin, and Procardia. Physical Examination: Vital Signs: Stable. He is afebrile. HEENT: Negative. Neck: Supple without bruit. Chest: Clear. Cardiac: Revealed a regular rhythm and rate with an S4 gallops. No murmurs or rubs. Abdomen: Benign. Extremities: Revealed no clubbing, cyanosis, or edema. Diagnostic Data: As stated earlier. Impression And Plan: This is a gentleman with diabetes, hypertension, classic symptoms for unstable angina. ND has ruled out. EKG showed nonspecific changes. I recommend to do a left heart catheteri zation on him today to define his coronary anatomy. The patient understand the risk and the benefits of the procedure. The case will be discussed with Dr. Lee after the catheterization is done. His blood pressure is fairly well controlled. His diabetes is borderline controlled. His potassium nee ds to be supplemented. NB/MODL Voice ID: [id number] Report ID: [id number]
--- NOTE | 2019-07-31 14:54 | OP ---
Surgeon: Ruben Rowley MD Socially Responsible Investment Adviser: Ryan Lawrence. Procedure: Left heart catheterization with selective coronary arteriogram. Indication: Unstable angina. Description Of Procedure: Mr. Valencia is 69, was admitted today with unstable angina, taken to the [facility] lab as an inpatient, prepped and draped in the routine sterile fashion. Given Versed and fentanyl for sedation. A 6-Telugu sheath introduced in the right common femoral artery successfully. Judkin s catheter left and right were used to do the diagnostic catheterization. He was found to have a nor mal left main and normal circumflex that is codominant. He had an LAD that had a 20% to 30% proximal stenosis, about 20% to 30 % mid to distal stenosis with collaterals to the RCA, PDA and posterolater al. His RCA was completely occluded proximally with what appeared to be which collaterals approximat murphy. There was a JERO 1 flow in the RCA. Patient was hypertensive during the procedure and received 0.1 clonidine before the sheath site was closed. Angiogram in the common femoral artery region was normal. Angio-Seal was used to close the case. Complications: None. Blood Loss: 5 mL. Anesthesia: Total conscious sedation was 45 minutes. Final Diagnoses: Severe coronary artery disease, total right coronary artery with collaterals from t he left system, normal EKG, normal troponin. Plan: The plan is to initiate medical therapy from a cardiovascular standpoint. We will probably ta ke him off Procardia and put him on beta-sai. Hold metformin for 48 hours. Continue the losarta n with hydrochlorothiazide. Add beta-sai and add statin, aspirin, and Plavix as well. I will di scuss the case further with Dr. Lee. MACK/MACOL Voice ID: [id number] Report ID: [id number]
[2019-08-01 04:47] LABS: Absolute Lymphocytes (CBC) 0.8 K/uL (0.7-4.9); Basophils % 0.3 % (0-1.3); Hematocrit 34.8 % (39.6-49.0); Lymphocytes % 7.9 % (15.3-44.8); MPV 8.4 fL (7.6-11.3)
[2019-08-01 05:07] LABS: Albumin 3.5 g/dL (3.4-5.0); Bilirubin Total 0.6 mg/dL (0.2-1.0); Potassium 4.5 mmol/L (3.5-5.1); Protein, Total 7.2 g/dL (6.4-8.2)
[2019-08-01 05:51] VITALS: O2SAT 93
--- NOTE | 2019-08-01 06:45 | P.DS ---
Admission Date: 07/31/19 Discharge Date: 08/01/19 Disposition: ROUTINE DISCHARGE Discharge Condition: FAIR Reason for Admission: chest pain - Problems (1) Chest pain Current Visit: Yes Status: Acute (2) Chest pain Current Visit: Yes Status: Acute (3) Diabetes mellitus Current Visit: Yes Status: Acute (4) Hypertension Current Visit: Yes Status: Acute Brief History of Present Illness: 69-year-old male with past medical history of hypertension, diabetes mellitus, presented because of sudden onset chest pain which started at about 9:00 p[address] wh ile patient was lying down and preparing to sleep. Pain is more in the lower substernal area and nonradiating more flat pressure-like. Patient states pain is related to a previous episode of pain with the presented to the ED a was given a GI cocktail which relieved the symptoms. He was given a GI cocktail on arrival today with no change in his patient pain symptoms. He still described pain at as 8/10. There is no for family history of coronary artery disease. Patient has never had a stress test or a cardiac catheterization in the past. He denies any history of tobacco use. He denies a prior history of recurrent GERD. Hospital Course: He had a cardiac cath with findings of -He had an LAD that had a 20% to 30% proximal stenosis, about 20% to 30 % mid to distal stenosis with collaterals to the RCA, PDA and posterolateral. His RCA was completely occluded proximally with what appeared to be which collaterals approximately. There was a JERO 1 f low in the RCA. Medical management was startedfor patient . he will be dc home and to follow with cardiology in 2 weeks Vital Signs/Physical Exam: Temp Pulse Resp BP Pulse Ox 99.4 F 63 15 144/74 H 96 08/01/19 00:00 08/01/19 00:00 08/01/19 00:00 08/01/19 00:00 08/01/19 00:00 General: In no apparent distress, Oriented x3 HEENT: Atraumatic, Normocephalic Neck: 2+ carotid pulse no bruit, JVD not distended Respiratory: Clear to auscultation bilaterally, Normal air movement Cardiovascular: Normal pulses, Regular rate/rhythm, Normal S1 S2 Gastrointestinal: Normal bowel sounds, Soft and benign, Non-distended Neurological: Normal speech, Normal strength at 5/5 x4 extr Laboratory Data at Discharge: WBC 10.3 K/uL (4.3-10.9) 08/01/19 04:37 Hgb 11.7 g/dL (13.6-17.9) L 08/01/19 04:37 Hct 34.8 % (39.6-49.0) L 08/01/19 04:37 Plt Count 246 K/uL (152-406) 08/01/19 04:37 Sodium 139 mmol/L (136-145) 08/01/19 04:37 Potassium 4.5 mmol/L (3.5-5.1) 08/01/19 04:37 BUN 15 mg/dL (7-18) 08/01/19 04:37 Creatinine 1.00 mg/dL (0.55-1.3) 08/01/19 04:37 Glucose 139 mg/dL (74-106) H 08/01/19 04:37 Total Bilirubin 0.6 mg/dL (0.2-1.0) 08/01/19 04:37 AST 53 U/L (15-37) H 08/01/19 04:37 ALT 83 U/L (12-78) H 08/01/19 04:37 Alkaline Phosphatase 89 U/L (45-117) 08/01/19 04:37 Troponin I < 0.02 ng/mL (0.0-0.045) 07/31/19 09:45 Triglycerides 107 mg/dL (<150) 07/31/19 05:55 Cholesterol 189 mg/dL (<200) 07/31/19 05:55 HDL Cholesterol 42 mg/dL (40-60) 07/31/19 05:55 Cholesterol/HDL Ratio 4.50 07/31/19 05:55 Lipase 168 U/L (73-393) 07/31/19 03:45 Home Medications: Losartan/Hydrochlorothiazide [Hyzaar 50-12.5 Tablet] 1 tab PO DAILY 09/17/14 Metformin HCl [Glucophage] 500 mg PO DAILY 09/17/14 Aspirin [Adult Aspirin Regimen] 81 mg PO DAILY #30 tablet. 08/01/19 Atorvastatin Calcium 40 mg PO DAILY #30 tablet 08/01/19 Carvedilol [Coreg] 3.125 mg PO BID #60 tablet 08/01/19 Clopidogrel Bisulfate [Plavix] 75 mg PO DAILY #30 tablet 08/01/19 New Medications: Aspirin [Adult Aspirin Regimen] 81 mg PO DAILY #30 tablet. Atorvastatin Calcium 40 mg PO DAILY #30 tablet Carvedilol [Coreg] 3.125 mg PO BID #60 tablet Clopidogrel Bisulfate [Plavix] 75 mg PO DAILY #30 tablet Patient Discharge Instructions: Follow up with primary care physician in 1 week. Follow up with form designer Dr. Rowley in 2 weeks. Return to ER for worsening condition. Hold metformin for 48 hr post heart cath Diet: ADA Activity: Ad marck
[2019-08-01] MEDS: INSULIN -REGULAR HUMAN 50 UNIT/0.5 ML ML SQ SCH (07:30)
[2019-08-01] MEDS: NITROGLYCERIN 0.2 MG/HR (5 MG) PATCH TD SCH (07:47)
[2019-08-01] MEDS: FAMOTIDINE 20 MG/2 ML VIAL IV SCH (08:47)
[2019-08-01] MEDS: ENOXAPARIN 40 MG/0.4 ML SQ SCH (08:47)
--- NOTE | 2019-08-01 08:59 | ECHO ---
HEIGHT: 5 ft 9 in WEIGHT: 210 lb 9.6 oz DATE OF STUDY: 07/31/[address]: Ruben Rowley MD 2-DIMENSIONAL: YES M.MODE: YES DOPPLER: YES COLOR FLOW: YES TDS: NO PORTABLE: NO DEFINITY: NO BUBBLE STUDY: NO DIAGNOSIS: CHEST PAIN CARDIAC HISTORY: CATHERIZATION: NO SURGERY: NO PROSTHETIC VALVE: NO PACEMAKER: NO MEASUREMENTS (cm) DIASTOLIC (NORMALS) SYSTOLIC (NORMALS) IVSd 1.0 (0.6-1.2) LA Diam 3.9 (1.9-4.0) LVEF 61% LVIDd 3.7 (3.5-5.7) LVIDs 2.5 (2.0-3.5) %FS 32% LVPWd 1.1 (0.6-1.2) Ao Diam 3.0 (2.0-3.7) 2 DIMENSIONAL ASSESSMENT: RIGHT ATRIUM: NORMAL LEFT ATRIUM: NORMAL RIGHT VENTRICLE: NORMAL LEFT VENTRICLE: NORMAL TRICUSPID VALVE: NORMAL MITRAL VALVE: NORMAL PULMONIC VALVE: NORMAL AORTIC VALVE: NORMAL PERICARDIAL EFFUSION: NONE AORTIC ROOT: NORMAL LEFT VENTRICULAR WALL MOTION: NORMAL. DOPPLER/COLOR FLOW: NORMAL. COMMENTS: NORMAL 2D ECHO WITH DOPPLER. NO WALL MOTION ABNORMALITY. NO EFFUSION. TECHNOLOGIST: HA CROCKETT
[2019-08-01] MEDS ORDERED: LOSARTAN/HCTZ 50-12.5 PO SCH (09:00)
[2019-08-01] MEDS ORDERED: NIFEDIPINE XL 30 MG TABLET PO SCH (09:00)
[2019-08-01 10:03] VITALS: BP 119/62; TEMP 97.6
--- NOTE | 2019-08-01 20:37 | PN ---
Date of Progress Note: 08/01/2019 Subjective: Patient had come in with unstable angina. Catheterization showed completely occluded RC A proximally with collaterals from the left system. He had a codominant system. His LAD showed by m yolieerate coronary artery disease. Echocardiogram was normal. This morning, he had no complaint. His chest pain has resolved. His right groin is intact without any complaint. Physical Examination: His examination is normal. Vital Signs: Stable. He was afebrile. Chest: Clear. Overnight, he had no telemetry changes. Impression And Plan: Severe coronary artery disease, 100% right coronary artery, [id number] di sease in the left anterior descending. I recommended medical therapy. I think he should be on aspir in, Plavix, beta-sai, and statin. No Procardia. Hold the metformin for 48 hours. He can go manav e and I will see him in the office in the next week or 2. He will eventually need a carotid Doppler evaluation and probably a stress test every 2 years. MACK/SOCORRO Voice ID: [id number] Report ID: [id number]
== END 2019-08-01 08:50 | disposition home or self-care (01) ==
LOC: ER 03:29 → ERHOLD 06:15 → 2ND 06:20
PROVIDERS: ADMIT Internal Medicine; ATTEND Family Medicine
DX: I25.10 Atherosclerotic heart disease of native coronary artery without angina pectoris (principal); I10 Essential (primary) hypertension; E11.649 Type 2 diabetes mellitus with hypoglycemia without coma; E78.5 Hyperlipidemia, unspecified; N40.0 Benign prostatic hyperplasia without lower urinary tract symptoms
CPT/HCPCS: 93005; 93306; 85025 ×2; 80048; 36415 ×2; 80061; 82947 ×5; 80076; 84484 ×3; 83690; 80053; 83880; 71045; 93454; 94760 ×2; 96375; 96374; 99285; C1893; C1760; J0360; J2250; J3010 ×2; J2270 ×2; J7040; J2405; G0378 ×3; J0583